=== PATIENT | male | born 1975 | race Caucasian/White ===

== ENCOUNTER 2022-10-14 14:48 | Outpatient (OUT) | payer OTHER, SELFPAY ==
--- NOTE | 2022-10-14 15:00 | XR_ITS ---
The [address] [address] Patient Name: RAN ANDERSON MRN: [id number] date: 1975 Sex: M Assigned Patient Location: [facility] Current Patient Location: RAD Accession/Order Number: [id number] Exam Date: 10/14/2022 15:05 Report Date: 10/14/2022 16:51 At the request of: KAYLEEN ALDRICH Procedure: XR shoulder RT min 2V EXAM: XR shoulder RT min 2V HISTORY: Right shoulder pain M25.511 COMPARISON: None. TECHNIQUE: 3 views of the right shoulder were obtained. FINDINGS: There is no evidence of an acute fracture or dislocation. The acromioclavicular joint is intact. There is mild narrowing of the left humeral joint, with osteophytes along the inferior margin. There is focal expansion of the cortex of the proximal right humerus with subtle lucency within. XR/XR shoulder RT min 2V IMPRESSION: No acute fracture or dislocation. Moderate degenerative changes are seen at the glenohumeral joint. Cortical lesion is seen in the proximal humerus. The lesion appears relatively benign, although the exact etiology is uncertain. A CT scan of the shoulder is recommended for further details. Electronically authenticated by: LEI CASTILLO Date: 10/14/2022 16:51
== END 2022-10-14 14:49 | disposition home or self-care (01) ==
LOC: RAD 14:55
PROVIDERS: PCP Family Medicine; Visit Provider Family Medicine
DX: M25.511 Pain in right shoulder (principal)
CPT/HCPCS: 73030